=== PATIENT | female | born 1965 | race Caucasian/White ===

== ENCOUNTER 2017-08-22 23:10 | Observation (INO) ==
--- NOTE | 2017-08-23 00:08 | ED ---
HPI General Chief Complaint: Chest Pain Stated Complaint: chest pressure/palpitations x5 pm Time Seen by Provider: 08/22/17 23:55 History of Present Illness HPI narrative: 51-year-old female presents to the emergency department by private transportation of the care of her significant other for evaluation of retrosternal chest pain and tightness with increased heart rate and hard beating since 5 PM. Patient rates discomfort 4-5/10 in intensity. Patient states discomfort did dissipate but has returned to 5/10 in intensity. Patient reports bilateral upper extremity weakness. No known history of CAD hypertension dyslipidemia or diabetes. Patient does smoke cigarettes and has family history of heart disease in both parents. No premature onset heart disease or early . Patient is allergic to morphine takes no prescription medications or [id number] medications previous procedures and surgeries include cholecystectomy bilateral tubal ligation and colonoscopy for family history of familial polyposis. Patient states she is taken no medications for symptom relief. No vomiting had episode of nausea and sweats. No abdominal pain flank pain diarrhea. No reported lower extremity pain or swelling. Patient did fly to [place] approximately 2 weeks ago. Patient has family history of clotting disorder in her mother but no known personal history of clotting disorder denies any lower extremity pain or swelling. Patient does complain of some shortness of breath but does not describe any pleuritic chest pain chest pain that is tightness does radiate into her back. Patient is unable to identify exacerbating or alleviating factors. Patient denies any recent respiratory illness or fever Complete Quality Measures for STEMI Alert Patients Related Data Home Medications Medication Instructions Recorded Confirmed No Known Home Medications 08/22/17 08/22/17 Allergies Allergy/AdvReac Type Severity Reaction Status Date / Time No Known Allergies Allergy Verified 08/22/17 23:47 Review of Systems Except as stated in HPI: all other systems reviewed are negative [facility] Medical History Medical History Colon polyps (Acute) Surgical History Surgical History Hx of cholecystectomy (Acute) Hx of tubal ligation (Acute) Social History Social History Substance History: Past History Smoking Status: Heavy tobacco smoker Tobacco Type: Cigarettes How Often Do You Have a Drink Containing Alcohol: Never Recent Travel in [facility] within the Last 8 Weeks: Yes Recent Out of Country Travel within the Last 8 Weeks: No Immunization History Tetanus Immunization: Unsure Hx Influenza Vaccine This Season: No Exam Narrative Exam Narrative: GENERAL: Well-nourished, well-developed patient. No acute distress no respiratory distress SKIN: Focused skin assessment warm/dry. HEAD: Normocephalic. EYES: No scleral icterus. No injection or drainage. NECK: Supple, trachea midline. No JVD or lymphadenopathy. CARDIOVASCULAR: Regular rate and rhythm without murmurs, gallops, or rubs. Radial and dorsalis pedis pulses are 2+ to palpation bilateral RESPIRATORY: Breath sounds equal bilaterally. No accessory muscle use. GASTROINTESTINAL: Abdomen soft, non-tender, nondistended. MUSCULOSKELETAL: No cyanosis, or edema. Negative Homans bilaterally dorsalis pedis pulse 2+ to palpation capillary refill brisk less than 2 seconds negative straight leg raising. BACK: Nontender without obvious deformity. No CVA tenderness. Course Initial Documented Vital Signs Temperature 98.1 F 08/22/17 23:27 Pulse Rate 80 08/22/17 23:27 Blood Pressure 164/94 H 08/22/17 23:27 Pulse Oximetry 96 08/22/17 23:27 Last Documented Vital Signs Temperature 98.1 F 08/22/17 23:44 Pulse Rate 76 08/23/17 02:54 Respiratory Rate 16 08/23/17 02:54 Blood Pressure 124/78 08/23/17 02:54 Pulse Oximetry 98 08/23/17 02:[address] [facility] Narrative Medical decision making narrative: 51-year-old female with new onset complaint of chest pain tightness and rapid heartbeat. Patient placed on manager cardiac cath with continuous pulse oximetry IV access obtained specimens collected and sent for resulting patient administered aspirin 162 mg as well as sublingual nitroglycerin EKG is normal sinus rhythm rate [address] elevation injury pattern or ectopy noted normal axis and intervals are present Patient administered acetaminophen for complaint of headache after nitroglycerin and replacement oral potassium; patient refused additional sublingual nitroglycerin after second sublingual nitroglycerin as her pain was improved headache such that she did not want additional nitroglycerin Patient's d-dimer was infant test only elevated however in view of her pain being sharp and worsened with deep inspiratory effort and recent long distance travel [place] pulmonary angiogram was performed and reveals no PE or acute process In view of patient's history of tobacco use and chest pain that responds to nitroglycerin although may be GI in nature is concerning for being related to cardiac etiology patient will be placed in chest pain center per protocol Patient's case discussed with on-call [facility] MD Dr. canales for observation admission chest pain center protocol. Differential Diagnosis Differential Diagnosis: Chest pain, atypical chest pain, ACS, NM, dissection, PE , musculoskeletal pain, esophageal spasm, biliary colic, gastritis, peptic ulcer disease, also to consider renal colic. Medical Records none Lab Data Result diagrams: 08/23/17 00:05 08/23/17 00:05 Lab Results 08/23/17 08/23/17 08/23/17 Range/Units 00:05 00:05 00:05 CBC w Diff Auto diff final WBC 6.5 (4.0-11.0) th/mm3 RBC 4.05 (4.00-5.30) mil/mm3 Hgb 12.0 (11.6-15.3) gm/dL Hct 34.9 L (35.0-46.0) % MCV 86.3 (80.0-100.0) fL MCH 29.7 (27.0-34.0) pg MCHC 34.5 (32.0-36.0) % RDW 14.0 (11.6-17.2) % Plt Count 222 (150-450) th/mm3 MPV 8.3 (7.0-11.0) fL Neut % (Auto) 57.9 (16.0-70.0) % Lymph % (Auto) 28.0 (9.0-44.0) % [place] % (Auto) 11.4 H (0.0-8.0) % Eos % (Auto) 2.0 (0.0-4.0) % Baso % (Auto) 0.7 (0.0-2.0) % Neut # (Auto) 3.9 (1.8-7.7) th/mm3 Lymph # (Auto) 1.8 (1.0-4.8) th/mm3 [place] # (Auto) 0.7 (0.0-0.9) th/mm3 Eos # (Auto) 0.1 (0.0-0.4) th/mm3 Baso # (Auto) 0.0 (0.0-0.2) th/mm3 WBC Differential . Differential Comment . PT 10.9 (9.8-11.6) sec INR 1.1 Ratio APTT 24.8 (24.3-30.1) sec D-Dimer Quant (PE/DVT) 0.54 H (0.00-0.50) mg/L FEU Sodium 139 (136-145) meq/L Potassium 3.2 L (3.5-5.1) meq/L Chloride 106 (98-107) meq/L Carbon Dioxide 26.6 (21.0-32.0) meq/L Anion Gap 6 (5-15) meq/L BUN 10 (7-18) mg/dL Creatinine 0.55 (0.50-1.00) mg/dL Estimated GFR Greater than 89 (>89) mL/min Random Glucose 111 H (74-106) mg/dL Calcium 7.8 L (8.5-10.1) mg/dL Magnesium 2.3 (1.5-2.5) mg/dL Total Bilirubin 0.2 (0.2-1.0) mg/dL AST 12 L (15-37) U/L ALT 17 (10-53) U/L Alkaline Phosphatase 78 (45-117) U/L Total Creatine Kinase 67 (26-192) U/L Troponin I Less than 0.02 L (0.02-0.05) ng/mL Total Protein 5.9 L (6.4-8.2) g/dL Albumin 2.5 L (3.4-5.0) g/dL Lipase 132 (73-393) U/L Imaging Data Radiologist's impression: Chest X-Ray 08/23/17 00:02 CONCLUSION: Negative examination. Chest CTA 08/23/17 02:44 CONCLUSION: No evidence of pulmonary embolism. ECG Data EKG Prior to Arrival: No Attestation: I personally reviewed and interpreted this ECG as follows: Prior ECG tracings: not available for review Interpretation: EKG normal sinus rhythm rate 84 normal axis and intervals no acute ST elevation injury pattern or ectopy noted Discharge Plan Physicians Team ED Provider: Magali Navarro Primary Care Provider: Primary Care Physici,Annamarie Rxs /Orders / Referrals /Forms Prescriptions: No Action No Known Home Medications RF: 0 Discharge Interventions Interventions: Vital Signs Last Done: 08/22/17 23:44 Status ED Status: With Doctor
[2017-08-23] MEDS ORDERED: Sod Chloride 0.9% Inj 1,000 ML IV.CONT SCH (00:15)
[2017-08-23 00:22] LABS: Baso % (Auto) 0.7 % (0.0-2.0); Eos # (Auto) 0.1 th/mm3 (0.0-0.4); Hematocrit 34.9 % (35.0-46.0); Lymph # (Auto) 1.8 th/mm3 (1.0-4.8); Mean Corpuscular HGB Conc 34.5 % (32.0-36.0); Mean Corpuscular Hemoglobin 29.7 pg (27.0-34.0); Mean Corpuscular Volume 86.3 fL (80.0-100.0); Mean Platelet Volume 8.3 fL (7.0-11.0); Mono # (Auto) 0.7 th/mm3 (0.0-0.9); Mono % (Auto) 11.4 % (0.0-8.0); Neut # (Auto) 3.9 th/mm3 (1.8-7.7); Neut % (Auto) 57.9 % (16.0-70.0); Platelet Count 222 th/mm3 (150-450); Red Blood Count 4.05 mil/mm3 (4.00-5.30); White Blood Count 6.5 th/mm3 (4.0-11.0)
--- NOTE | 2017-08-23 00:22 | XR ---
EXAM DATE: 08/23/2017 12:15 AM EDT AGE/SEX: 51 years / Female INDICATIONS: Chest pain. CLINICAL DATA: This is the patient's initial encounter. Patient reports that signs and symptoms have been present for 1 day and indicates a pain score of 5/10. MEDICAL/SURGICAL HISTORY: None. Cholecystectomy. COMPARISON: No prior exams available for comparison. FINDINGS: A single AP view of the chest demonstrates the lungs to be symmetrically aerated without evidence of mass, infiltrate or effusion. The cardiomediastinal contours are unremarkable. Osseous structures a re intact. CONCLUSION: Negative examination. Electronically signed by: Torsten Toure MD 08/23/2017 12:21 AM EDT
[2017-08-23 00:30] LABS: Chloride 106 meq/L (98-107); Potassium 3.2 meq/L (3.5-5.1); Sodium 139 meq/L (136-145)
[2017-08-23 00:34] LABS: Albumin 2.5 g/dL (3.4-5.0); Anion Gap 6 meq/L (5-15); Blood Urea Nitrogen 10 mg/dL (7-18); Calcium 7.8 mg/dL (8.5-10.1); Carbon Dioxide 26.6 meq/L (21.0-32.0); Glucose,Random 111 mg/dL (74-106); Lipase 132 U/L (73-393); Magnesium 2.3 mg/dL (1.5-2.5)
[2017-08-23 00:37] LABS: Alanine Aminotransferase 17 U/L (10-53); Aspartate Aminotransferase 12 U/L (15-37); Glomerular Filtration Rate Greater Than 89 mL/min (>89)
[2017-08-23 00:39] LABS: Activated Partial Thrombo Time 24.8 sec (24.3-30.1); INR 1.1 Ratio; Prothrombin Time 10.9 sec (9.8-11.6); Total Protein 5.9 g/dL (6.4-8.2)
[2017-08-23 00:40] LABS: Alkaline Phosphatase 78 U/L (45-117)
[2017-08-23 01:12] LABS: Creatine Kinase 67 U/L (26-192)
[2017-08-23 01:21] LABS: D-Dimer 0.54 mg/L FEU (0.00-0.50)
[2017-08-23] MEDS ORDERED: Acetaminophen 325 MG Tablet PO ONE (02:44)
--- NOTE | 2017-08-23 03:28 | CT ---
EXAM DATE: 08/23/2017 3:16 AM EDT AGE/SEX: 51 years / Female INDICATIONS: Chest pain, shortness of breath. CLINICAL DATA: This is the patient's initial encounter. Patient reports that signs and symptoms have been present for 1 day and indicates a pain score of 3/10. MEDICAL/SURGICAL HISTORY: None. Cholecystectomy. Tubal ligation. RADIATION DOSE: 12.83 CTDI (mGy) COMPARISON: No prior exams available for comparison. TECHNIQUE: Volumetric scanning was performed using a multi-row detector CT scanner during bolus infu davon of 74 ml Omnipaque 350 (iohexol) nonionic water-soluble contrast as a single exam dose. The von a was post processed with a variety of visualization algorithms including full volume maximum intensi ty projection and sliding thin slab reformation. Using automated exposure control and adjustment of the mA and/or kV according to patient size, radiation dose was kept as low as reasonably achievable t o obtain optimal diagnostic quality images. DICOM format image data is available electronically for review and comparison. FINDINGS: Pulmonary Arteries: No filling defects are seen in the pulmonary arteries out to the subsegmental ve ssels. The left and right pulmonary arteries are normal in diameter. Lung: Minimal groundglass parenchymal opacity in the posterior right lung base. Miniscule right midd le lobe lung nodule. Effusion: None. Mediastinum: No evidence of mediastinal or hilar adenopathy. Other: The axilla is unremarkable. Benign appearing peripherally calcified splenic mass. CONCLUSION: No evidence of pulmonary embolism. Electronically signed by: Torsten Toure MD 08/23/2017 3:26 AM EDT
[2017-08-23 05:52] LABS: Creatine Kinase 55 U/L (26-192)
[2017-08-23 08:44] LABS: Creatine Kinase 51 U/L (26-192)
[2017-08-23] MEDS ORDERED: Aspirin 325 MG Tablet PO SCH (09:00)
--- NOTE | 2017-08-23 09:25 | P.HP ---
History of Present Illness Primary Care Physician: No Primary Care Physician History of Present Illness: This is a pleasant 51-year-old female patient with no known medical history presented to the ED with complaints of chest pain. Patient states that yesterday around 5 PM she was sitting she developed a midsternal chest tightness that radiated to her left chest, was rated a 5 out of 10 at its worst on pain scale and lasted roughly 10 minutes. Patient denies any nausea, vomiting or associated sweating. Does admit to associated shortness of breath with the pain. Patient denies any known aggravating or alleviating factors. Patient does admit to having a stress test greater than 5 years ago which was reportedly negative. Patient denies any recent illness including fever, chills , cough, abdominal pain, nausea, vomiting, diarrhea dysuria. It should be noted that patient did fly to [place] a couple weeks ago. Does admit to a significant family medical history on her mother's side of cardiovascular disease. Does admit to smoking 2 packs per day since her teen years. Unsure of her cholesterol level. Does not follow with the primary care doctor. At the time of assessment symptoms have improved - Diagnosis (1) Chest pain (2) Hypokalemia Review of Systems All other systems reviewed negative except as stated in HPI PMFSH - History History Provided By: Patient - Medical History Medical History: Medical History (Last Reviewed 08/23/17 @ 00:06 by Magali Navarro MD) Colon polyps - Surgical History Surgical History: Surgical History (Last Reviewed 08/23/17 @ 00:06 by Magali Navarro MD) Hx of cholecystectomy Hx of tubal ligation - Family History Family History: Family History (Last Updated 08/23/17 @ 09:21 by Yumiko Morales) Other Cardiovascular disease - Tobacco History Second Hand Smoke Exposure: No Tobacco Use In Past 30 Days: Yes Smoking Status: Heavy tobacco smoker Tobacco Type: Cigarettes - Alcohol History How Often Do You Have a Drink Containing Alcohol: Never - Substance Use History Substance History: Past History - Travel History Recent Travel in the [facility] Within the Last 8 Weeks: Yes Recent Travel Out of the Country Within the Last 8 Weeks: No - Immunization History Tetanus Immunization: Unsure Hx Influenza Vaccine This Season: No Medications and Allergies Active Medications: Active Medications Aspirin (Aspirin) 325 mg PO DAILY RIZWAN Sodium Chloride (Ns Inj) 1,000 mls @ 125 mls/hr IV.CONT .Q8H RIZWAN Last Admin: 08/23/17 00:14 Dose: 125 mls/hr Nitroglycerin (Nitrostat Sl) 0.4 mg SL Q5M PRN PRN Reason: CHEST PAIN Sodium Chloride (Ns Flush) 2 ml IV.FLUSH UNSCH PRN PRN Reason: FLUSH AFTER USING IV ACCESS Sodium Chloride (Ns Flush) 2 ml IV.FLUSH BID RIZWAN Sodium Chloride (Ns Flush) 2 ml IV.FLUSH PRN PRN PRN Reason: FLUSH AFTER USING IV ACCESS Allergies Allergy/AdvReac Type Severity Reaction Status Date / Time No Known Allergies Allergy Verified 08/22/17 23:47 Home Medications Medication Instructions Recorded Confirmed Type No Known Home Medications 08/22/17 08/22/17 History Exam Vital signs: Vital Signs 08/22/17 23:27 08/22/17 23:44 08/23/17 00:02 Temperature 98.1 F 98.1 F Pulse Rate 80 80 Respiratory Rate 18 Blood Pressure 164/94 H 164/94 H Blood Pressure [Left Arm] 114/61 Blood Pressure [Right Arm] 139/79 Pulse Oximetry 96 96 08/23/17 00:25 08/23/17 00:35 08/23/17 02:54 Temperature Pulse Rate 82 74 76 Respiratory Rate 16 16 16 Blood Pressure 114/61 107/54 L 124/78 Blood Pressure [Left Arm] Blood Pressure [Right Arm] Pulse Oximetry 98 97 98 08/23/17 04:28 08/23/17 04:46 08/23/17 05:59 Temperature 97 F L Pulse Rate 68 69 Respiratory Rate 16 20 Blood Pressure 120/67 130/65 Blood Pressure [Left Arm] Blood Pressure [Right Arm] Pulse Oximetry 97 97 94 L 08/23/17 07:48 Temperature 96.9 F L Pulse Rate 62 Respiratory Rate 20 Blood Pressure 144/64 H Blood Pressure [Left Arm] Blood Pressure [Right Arm] Pulse Oximetry 95 Intake & Output 08/22/17 08/23/17 08/23/17 18:59 06:59 18:59 Weight 97 kg Narrative: GENERAL: Well-developed, well-nourished patient in [facility]. SKIN: Warm and dry. No rash. HEAD: Normocephalic. Atraumatic. EYES: Pupils equal and round. No scleral icterus. No injection or drainage. ENT: No nasal bleeding or discharge. Mucous membranes pink and moist. NECK: Supple. Trachea midline. CARDIOVASCULAR: Regular rate and rhythm. S1, S2 noted. No murmur appreciated. No chest pain to palpation. RESPIRATORY: No accessory muscle use. Clear to auscultation. Breath sounds equal bilaterally. GASTROINTESTINAL: Abdomen soft, non-tender, nondistended. Normoactive bowel sounds x4. MUSCULOSKELETAL: No obvious deformities. Extremities without clubbing, cyanosis , or edema. NEUROLOGICAL: Awake and alert. No obvious cranial nerve deficits. Motor grossly within normal limits. 5/5 muscle strength in bilateral upper and lower extremities. Normal speech. PSYCHIATRIC: Appropriate mood and affect; insight and judgment normal. - Constitutional no acute distress - Routine HEENT Exam Head: Present: normocephalic Eye: Present: EOMI ENT: Present: mucous membranes moist - Routine Neck Exam Present: supple Results - Labs CBC & Chem 7: 08/23/17 00:05 08/23/17 00:05 Labs: Laboratory Results - last 24 hr 08/23/17 08/23/17 08/23/17 00:05 00:05 00:05 CBC w Diff Auto diff final WBC 6.5 RBC 4.05 Hgb 12.0 Hct 34.9 L MCV 86.3 MCH 29.7 MCHC 34.5 RDW 14.0 Plt Count 222 MPV 8.3 Neut % (Auto) 57.9 Lymph % (Auto) 28.0 [place] % (Auto) 11.4 H Eos % (Auto) 2.0 Baso % (Auto) 0.7 Neut # (Auto) 3.9 Lymph # (Auto) 1.8 [place] # (Auto) 0.7 Eos # (Auto) 0.1 Baso # (Auto) 0.0 WBC Differential . Differential Comment . PT 10.9 INR 1.1 APTT 24.8 D-Dimer Quant (PE/DVT) 0.54 H Sodium 139 Potassium 3.2 L Chloride 106 Carbon Dioxide 26.6 Anion Gap 6 BUN 10 Creatinine 0.55 Estimated GFR Greater than 89 Random Glucose 111 H Calcium 7.8 L Magnesium 2.3 Total Bilirubin 0.2 AST 12 L ALT 17 Alkaline Phosphatase 78 Total Creatine Kinase 67 Troponin I Less than 0.02 L Total Protein 5.9 L Albumin 2.5 L Lipase 132 08/23/17 08/23/17 04:35 07:57 CBC w Diff WBC RBC Hgb Hct MCV MCH MCHC RDW Plt Count MPV Neut % (Auto) Lymph % (Auto) [place] % (Auto) Eos % (Auto) Baso % (Auto) Neut # (Auto) Lymph # (Auto) [place] # (Auto) Eos # (Auto) Baso # (Auto) WBC Differential Differential Comment PT INR APTT D-Dimer Quant (PE/DVT) Sodium Potassium Chloride Carbon Dioxide Anion Gap BUN Creatinine Estimated GFR Random Glucose Calcium Magnesium Total Bilirubin AST ALT Alkaline Phosphatase Total Creatine Kinase 55 51 Troponin I Less than 0.02 L Less than 0.02 L Total Protein Albumin Lipase - Imaging Impressions Chest X-Ray 08/23/17 00:02 CONCLUSION: Negative examination. Chest CTA 08/23/17 02:44 CONCLUSION: No evidence of pulmonary embolism. Caprini VTE Risk Assessment Caprini VTE Risk Assessment: No/Low Risk (score <= 1) Caprini Risk Assessment Model: Point Value = 1 Point Value = 2 Point Value = 3 Point Value = 5 Age 41-60 Minor surgery BMI > 25 kg/m2 Swollen legs Varicose veins or History of unexplained or recurrent spontaneous Oral contraceptives or hormone replacement Sepsis (< 1 month) Serious lung disease, including pneumonia (< 1 month) Abnormal pulmonary function Acute myocardial infarction Congestive heart failure (< 1 month) History of inflammatory bowel disease Medical patient at bed rest Age 61-74 Arthroscopic surgery Major open surgery (> 45 min) Laparoscopic surgery (> 45 min) Malignancy Confined to bed (> 72 hours) Immobilizing plaster cast Central venous access Age >= 75 History of VTE Family history of VTE Factor V Leiden Prothrombin [id number] Lupus anticoagulant Anticardiolipin antibodies Elevated serum homocysteine Heparin-induced thrombocytopenia Other congenital or acquired thrombophilia Stroke (< 1 month) Elective arthroplasty Hip, pelvis, or leg fracture Acute spinal cord injury (< 1 month) Prophylaxis Regimen: Total Risk Factor Score Risk Level Prophylaxis Regimen 0-1 Low Early ambulation 2 Moderate Order ONE of the following: *Sequential Compression Device (SCD) *Heparin 5000 units SQ BID 3-4 Higher Order ONE of the following medications: *Heparin 5000 units SQ TID *Enoxaparin/Lovenox 40 mg SQ daily (WT < 150 kg, CrCl > 30 mL/min) *Enoxaparin/Lovenox 30 mg SQ daily (WT < 150 kg, CrCl > 10-29 mL/min) *Enoxaparin/Lovenox 30 mg SQ BID (WT < 150 kg, CrCl > 30 mL/min) AND/OR *Sequential Compression Device (SCD) 5 or more Highest Order ONE of the following medications: *Heparin 5000 units SQ TID (Preferred with Epidurals) *Enoxaparin/Lovenox 40 mg SQ daily (WT < 150 kg, CrCl > 30 mL/min) *Enoxaparin/Lovenox 30 mg SQ daily (WT < 150 kg, CrCl > 10-29 mL/min) *Enoxaparin/Lovenox 30 mg SQ BID (WT < 150 kg, CrCl > 30 mL/min) AND *Sequential Compression Device (SCD) Assessment and Plan - Assessment (1) Chest pain Code(s): R07.9 - Chest pain, unspecified Status: Acute Plan: Patient has been admitted to the chest pain center for observation. Serial EKGs and serial troponins have been ordered for ruling ACS purposes. Troponin trend flat. EKG reviewed showing normal sinus rhythm, no indicate ischemia, controlled heart rate. Patient will be continued on cardiac telemetry, monitor for any arrhythmias. Chest x-ray reviewed showing no acute disease. D-dimer was elevated on presentation. CTA ordered in the ED, reviewed showing nothing significant. Labs are essentially unremarkable. Will add lipid panel, follow. Patient given aspirin and nitroglycerin in ED, symptoms have improved. Aspirin started daily. Nitroglycerin available for chest pain. Patient will undergo a cardiac myocardial perfusion scan to further rule out any ischemia. Patient is stable at this time and agreeable to the plan. Further hospitalization and treatment plan will depend on nuclear imaging results. (2) Hypokalemia Code(s): E87.6 - Hypokalemia Status: Acute Plan: Given replacement. Follow BMP.
[2017-08-23 11:45] LABS: Chol/HDL Ratio 3.49 Ratio; HDL Cholesterol 39.5 mg/dL (40.0-60.0)
[2017-08-23] MEDS ORDERED: Regadenoson Inj 0.4 MG/5 ML Syringe IV.PUSH ONE (12:15)
--- NOTE | 2017-08-23 13:15 | NM ---
EXAM DATE: 08/23/2017 1:09 PM EDT AGE/SEX: 51 years / Female INDICATIONS:Angina. . Midsternal chest pain radiating to left arm with dyspnea. CLINICAL DATA: This is the patient's initial encounter. Patient reports that signs and symptoms have been present for 1 day and indicates a pain score of 5/10. MEDICAL/SURGICAL HISTORY: None. Tubal ligation. Cholecystectomy. COMPARISON: No prior exams available for comparison. DOSE: 8.5 mCi Tc 99m Myoview at rest 25.4 mCi [id number] at stress 0.4 mg Lexiscan STRESS SYMPTOMS: Dyspnea and chest pain. EJECTION FRACTION: 56 % TECHNIQUE: The patient underwent pharmacologic stress with infusion of prescribed dose. Continuous ECG tracing was monitored during stress. Gated SPECT imaging was performed after stress and conventi onal SPECT imaging was performed at rest. The examination was performed on a SPECT/CT scanner, both attenuation and non-corrected datasets were reviewed. FINDINGS: Distribution: The maximum perfused segment at stress is in the lateral wall. Perfusion Study: The pattern of perfusion at stress is within normal limits. Gated Study: There are intact wall motion and wall thickening without hypokinetic or dyskinetic segm ents. The ejection fraction is calculated at 56%. RISK CATEGORY: Low risk CONCLUSION: 1. No fixed or reversible perfusion defects. Normal wall motion. Normal ejection fraction. Electronically signed by: Suize Engle MD 08/23/2017 1:14 PM EDT
--- NOTE | 2017-08-24 14:47 | ECG ---
Date Performed: 08/23/2017 Time Performed: 04:31:13 PTAGE: 51 years EKG: Sinus rhythm NORMAL ECG NO PREVIOUS TRACING DOCTOR: Sami Darden Interpretating Date/Time 08/24/2017 14:45:58
--- NOTE | 2017-08-24 14:47 | ECG ---
Date Performed: 08/23/2017 Time Performed: 08:04:17 PTAGE: 51 years EKG: Sinus rhythm NORMAL ECG PREVIOUS TRACING : 08/23/2017 04.31 Since previous tracing, no significant change noted DOCTOR: Sami Darden Interpretating Date/Time 08/24/2017 14:45:41
--- NOTE | 2017-08-24 14:48 | ECG ---
Date Performed: 08/22/2017 Time Performed: 23:21:03 PTAGE: 51 years EKG: Sinus rhythm NORMAL ECG NO PREVIOUS TRACING DOCTOR: Sami Darden Interpretating Date/Time 08/24/2017 14:46:29
--- NOTE | 2017-08-24 14:52 | TR ---
Date Performed: 08/23/2017 Time Performed: 12:31:12 DOCTOR: Sami Darden DRUG LIST: CLINICAL HISTORY: CHEST PAIN REASON FOR TEST: Chest pain REASON FOR ENDING: OBSERVATION: CONCLUSION: COMMENTS: Lexiscan stress test was performed under standard four minute protocol. Radionuclide was injected one minute prior to ending the test. No electrocardiographic abormalities were present t o suggest ischemia. Nuclear imaging and interpretation are pending.
== END 2017-08-23 14:46 | disposition home or self-care (01) ==
LOC: PH3 23:10 → PHED 23:10 → PHEDA 23:10 → PH3 08-23 05:20 → PHEDA 08-23 05:32
PROVIDERS: ADMIT Hospitalist; ATTEND Hospitalist